=== PATIENT | male | born 1990 | race Caucasian/White ===

== ENCOUNTER 2017-09-18 21:05 | Emergency (ER) | payer OTHER ==
[~2017-09-18] VITALS: Ht 180.3 cm; Wt 74.8 kg
[~2017-09-18 21:05] MED LIST: AMOX500 PO; AZIT500 PO; CETI10 PO; CODACE30 PO; CYCL10 PO; DIPH50 PO; HYDACE5 PO; IBUP600 PO; NAPR550 PO; PRED5 PO
[2017-09-18] MEDS ORDERED: Bactrim Ds Tab1 EACH PO (23:59)
== END 2017-09-19 00:16 | disposition home or self-care (01) ==
LOC: ER 21:05
DX: L03.211 Cellulitis of face (principal); F15.10 Other stimulant abuse, uncomplicated; F11.10 Opioid abuse, uncomplicated; T43.625A Adverse effect of amphetamines, initial encounter; F17.200 Nicotine dependence, unspecified, uncomplicated
CPT/HCPCS: 36415; 96365; 96375; 99283; J1100; J1200

== ENCOUNTER 2017-12-15 10:25 | Emergency (ER) | payer OTHER ==
[~2017-12-15] VITALS: Ht 180.3 cm; Wt 81.7 kg
[~2017-12-15 10:25] MED LIST changes: +Bactrim Ds Tab1 EACH PO
[2017-12-15] MEDS ORDERED: Bactrim Ds Tab1 EACH PO (12:24)
[2017-12-15] MEDS ORDERED: Keflex500 MG PO (12:24)
== END 2017-12-15 12:28 | disposition home or self-care (01) ==
LOC: ER 10:25
DX: L03.113 Cellulitis of right upper limb (principal); L03.314 Cellulitis of groin; L03.311 Cellulitis of abdominal wall; L03.312 Cellulitis of back [any part except buttock and flank]; F17.200 Nicotine dependence, unspecified, uncomplicated
CPT/HCPCS: 99283

== ENCOUNTER 2018-06-23 14:12 | Emergency (ER) | payer SELFPAY ==
[~2018-06-23] VITALS: Ht 180.3 cm; Wt 81.7 kg
[~2018-06-23 14:12] MED LIST changes: +Keflex500 MG PO
[2018-06-23] MEDS ORDERED: Bactrim Ds Tab1 EACH PO (14:46)
[2018-06-23] MEDS ORDERED: IBUP800 PO (14:46)
[2018-06-23] MEDS ORDERED: Ultram50 MG PO (14:46)
[2018-06-23] MEDS ORDERED: CEPH500 PO (14:46)
== END 2018-06-23 14:54 | disposition home or self-care (01) ==
LOC: ER 14:12
DX: L02.01 Cutaneous abscess of face (principal); L03.211 Cellulitis of face
CPT/HCPCS: 10060; 87070; 87075; 87205; 99283-25